=== PATIENT | female | born 1965 | race Caucasian/White ===

== ENCOUNTER 2017-11-22 07:14 | Day surgery (SDC) | payer OTHER ==
[~2017-11-22 07:14] MED LIST: CEPH500 PO; HYDACE5 PO; META800 PO; Norco 5-325 Ta1 EACH PO; TRAACE PO
== END 2017-11-22 22:37 | disposition home or self-care (01) ==
LOC: MOI MAM 07:14
PROC: BH40ZZZ Ultrasonography of Right Breast (ICD-10-PCS; principal; 2017-11-22)
DX: N63.10 Unspecified lump in the right breast, unspecified quadrant (principal)
CPT/HCPCS: 19285; 77065

== ENCOUNTER 2017-11-26 07:33 | Day surgery (SDC) | payer OTHER ==
[~2017-11-26] VITALS: Ht 170.2 cm; Wt 73.5 kg
== END 2017-11-26 11:01 | disposition home or self-care (01) ==
LOC: ORSCSDS 07:33
PROVIDERS: Surgery
PROC: 0HBT0ZX Excision of Right Breast, Open Approach, Diagnostic (ICD-10-PCS; principal; 2017-11-26 08:45)
DX: D24.1 Benign neoplasm of right breast (principal)
CPT/HCPCS: 76098; 88307; J0690; J2250; J3010; J7120

== ENCOUNTER → 2018-03-23 | Outpatient (CLI) | payer OTHER ==
[2018-03-25 15:07] LABS: HPV 16 Negative (Negative); HPV 18 Negative (Negative); HPV OTHER HR TYPES Negative (Negative)
== END | disposition home or self-care (01) ==
LOC: LAB 18:13 → LAB SHORT 18:13
PROVIDERS: Nurse Practitioner Women's Health
DX: Z12.4 Encounter for screening for malignant neoplasm of cervix (principal); E66.3 Overweight; Z91.89 Other specified personal risk factors, not elsewhere classified
CPT/HCPCS: 87624; G0123

== ENCOUNTER → 2018-04-15 | Outpatient (CLI) | payer OTHER ==
[2018-04-15 11:31] LABS: BASOPHILS ABSOLUTE AUTO 0.03 K/mm3 (0.00-0.23); BASOPHILS PERCENT AUTO 0 % (0-2); EOSINOPHILS PERCENT AUTO 1 % (0-6); Hematocrit 38.7 % (33.0-51.0); Hemoglobin 13.3 g/dL (11.5-16.0); IMMATURE GRAN ABSOLUTE AUTO 0.02 K/mm3 (0.00-0.10); IMMATURE GRAN PERCENT AUTO 0 % (0-1); LYMPHOCYTES ABSOLUTE AUTO 1.21 K/mm3 (0.84-5.20); LYMPHOCYTES PERCENT AUTO 18 % (21-46); MONOCYTES ABSOLUTE AUTO 0.68 K/mm3 (0.16-1.47); MONOCYTES PERCENT AUTO 10 % (4-13); Mean Corpuscular HGB 33.3 pg (26.0-34.0); Mean Corpuscular HGB Conc 34.4 g/dL (31.5-36.5); Mean Corpuscular Volume 97 fL (80-100); Mean Platelet Volume 10.7 fL (9.1-12.4); NEUTROPHILS ABSOLUTE AUTO 4.88 K/mm3 (1.96-9.15); NEUTROPHILS PERCENT AUTO 71 % (41-73); Platelet Count 311 K/mm3 (150-400); RDW Coefficient Variation 11.6 % (11.7-14.2); RDW Standard Deviation 41.3 fL (35.1-46.3); White Blood Cell Count 6.92 K/mm3 (4.00-11.30)
[2018-04-15 15:00] LABS: Alanine Aminotransfer (ALT/SGP 22 U/L (12-78); Albumin, Blood 3.8 g/dL (3.4-5.0); Albumin/Globulin Ratio 1.1 (0.8-1.8); Alk Phos 82 U/L (50-136); Anion Gap 6 mmol/L (6-16); Aspartate Aminotrans (AST/SGOT 13 U/L (12-37); Blood Urea Nitrogen 15 mg/dL (8-24); Bun/Creatinine Ratio 23.4 (12.0-20.0); CO2, Blood 26 mmol/L (21-32); Calcium, Blood 8.7 mg/dL (8.5-10.1); Chloride, Blood 106 mmol/L (98-108); Creatinine, Blood 0.64 mg/dL (0.40-1.00); Globulin, Blood 3.6 g/dL (2.2-4.0); Glomerular Filtration Rate >60 (60-); Glucose, Blood 94 mg/dL (70-99); Potassium, Blood 3.9 mmol/L (3.5-5.5); Sodium, Blood 138 mmol/L (136-145); Total Protein, Blood 7.4 g/dL (6.4-8.2)
== END ==
LOC: LAB SHORT 10:51 → LAB 10:51
PROVIDERS: Family Medicine
DX: R42 Dizziness and giddiness (principal)
CPT/HCPCS: 80053; 85025; 85651

== ENCOUNTER → 2019-05-23 | Outpatient (CLI) | payer OTHER | END | disposition home or self-care (01) | LOC: LAB SHORT 11:45 → PLD 11:45 | DX: D48.5 Neoplasm of uncertain behavior of skin (principal) | CPT/HCPCS: 88305 ==

== ENCOUNTER 2024-05-31 08:00 | Day surgery (SDC) | payer OTHER | END 2024-05-31 23:00 | LOC: WOUND 08:00 | DX: T81.31XA Disruption of external operation (surgical) wound, not elsewhere classified, initial encounter (principal); S21.002D Unspecified open wound of left breast, subsequent encounter; Z85.3 Personal history of malignant neoplasm of breast; Z88.0 Allergy status to penicillin; Z88.8 Allergy status to other drugs, medicaments and biological substances; Z91.040 Latex allergy status | CPT/HCPCS: G0463 ==

== ENCOUNTER 2024-06-06 00:36 | Day surgery (SDC) | payer OTHER | END 2024-06-06 23:00 | disposition home or self-care (01) | LOC: WOUND 00:36 | DX: T81.31XA Disruption of external operation (surgical) wound, not elsewhere classified, initial encounter (principal); S21.002A Unspecified open wound of left breast, initial encounter ==

== ENCOUNTER 2024-06-13 03:31 | Day surgery (SDC) | payer OTHER ==
[2024-06-13] MEDS ORDERED: Lidocaine HCl 4% Cream 5 GM ONE (10:00)
== END 2024-06-13 23:08 | disposition home or self-care (01) ==
LOC: WOUND 03:31
DX: T81.31XA Disruption of external operation (surgical) wound, not elsewhere classified, initial encounter (principal); Y83.8 Other surgical procedures as the cause of abnormal reaction of the patient, or of later complication, without mention of misadventure at the time of the procedure; Z85.3 Personal history of malignant neoplasm of breast
CPT/HCPCS: A9270

== ENCOUNTER 2024-06-20 00:42 | Day surgery (SDC) | payer OTHER ==
[2024-06-20] MEDS ORDERED: Lidocaine HCl 4% Cream 5 GM ONE (09:57)
== END 2024-06-20 23:04 | disposition home or self-care (01) ==
LOC: WOUND 00:42
DX: T81.31XD Disruption of external operation (surgical) wound, not elsewhere classified, subsequent encounter (principal); Y83.8 Other surgical procedures as the cause of abnormal reaction of the patient, or of later complication, without mention of misadventure at the time of the procedure
CPT/HCPCS: A9270; G0463